=== PATIENT | male | born 1930 | race Caucasian/White ===

== ENCOUNTER → 2016-09-16 | Outpatient (CLI) | payer MEDICARE | END | disposition home or self-care (01) | LOC: RAD.S 15:50 | DX: R10.9 Unspecified abdominal pain (principal); K86.89 Other specified diseases of pancreas; K44.9 Diaphragmatic hernia without obstruction or gangrene; R63.4 Abnormal weight loss; M81.0 Age-related osteoporosis without current pathological fracture ==

== ENCOUNTER → 2016-12-09 | Outpatient (CLI) | payer MEDICARE | END | disposition home or self-care (01) | LOC: RAD.S 12-04 10:49 | DX: R13.10 Dysphagia, unspecified (principal); R05 Cough; K22.9 Disease of esophagus, unspecified ==